=== PATIENT | female | born 1985 | race African-American/Black ===

== ENCOUNTER → 2019-10-18 | Emergency (ER) | payer MEDICAID ==
[~2019-10-18] VITALS: Ht 165.1 cm; Wt 63.5 kg
[~2019-10-18] MED LIST: AMOXICILLI250 MG/5 M ORAL; CHILDREN'S100 MG/58 PO; GUAIFENESI100 MG/5 M ORAL; LIDOCAINE VISC100 ML ORAL
--- NOTE | 2019-10-18 17:25 | NUR ---
ED Nurse Note: PT WALKED IN C/O FLU LIKE SYMPTOMS X 4DAYS, REPORTS SORE THROAT 10/10, COUGH, BILAT EARACHE. PT TEMP AT TRIAGE IS 100.2. VSS, NAD, ERPA AT BEDSIDE. WILL CONTINUE TO MONITOR PATIENT.
--- NOTE | 2019-10-18 17:50 | NUR ---
Note nelida in EDM - 10/18/19 at 1822 by [email or web address] ED Nurse Note: PT WALKED IN C/O FLU LIKE SYMPTOMS X4DAYS; PT REPORTS SORE THROATY Patient walked in c/o flu like symptoms x 4 days; pt reports a sore throat, cough, bilateral earache. Pt rates pain at 10/10. Temp 100.2 F in the ER.
--- NOTE | 2019-10-18 18:06 | Emergency Room Report ---
History of Present Illness General Chief Complaint: Flu Like Symptoms Source: Patient Present Illness HPI 33-year-old female with no significant past medical history here complaining of 4 days of a 10 out of 10 sore throat, fever and chills, and slight cough however denies congestion, abdominal pain, generalized body ache, nausea vomiting. Has been taking DayQuil and NyQuil with minimal relief. Denies any recent travel. Denies tobacco smoke, marijuana use, vaping. Denies at this time. Allergies: Coded Allergies: No Known Allergies (Unverified , 10/18/19) Patient History Past Medical History: see triage record Past Surgical History: unable to obtain Pertinent Family History: none Last Menstrual Period: 09/30/2019 Now: No : 2 Para: 2 Immunizations: UTD Reviewed Nursing Documentation: PMH: Agreed; PSxH: Agreed Nursing Documentation-PMH Past Medical History: No Stated History Review of Systems All Other Systems: negative except mentioned in HPI Physical Exam Vital Signs Date Time Temp Pulse Resp B/P (MAP) Pulse Ox O2 Delivery O2 Flow Rate FiO2 10/18/19 17:49 100.2 105 18 132/87 (102) 98 Room Air Sp02 EP Interpretation: reviewed, abnormal - Temperature 100 F General Appearance: no apparent distress, alert, GCS 15, non-toxic Head: normocephalic, atraumatic Eyes: bilateral eye normal inspection, bilateral eye PERRL ENT: EOM grossly intact, tonsillar swelling, pharyngeal erythema, tonsillar exudate Neck: supple, no meningismus, other - Anterior cervical lymphadenopathy Respiratory: chest non-tender, lungs clear, normal breath sounds, no wheezing, speaking full sentences Cardiovascular #1: regular rate, rhythm, no edema, no murmur Gastrointestinal: non tender, soft, no mass Rectal: deferred Genitourinary: no CVA tenderness Musculoskeletal: back normal Neurologic: alert, motor strength/tone normal, oriented x3, sensory intact, responsive, speech normal Psychiatric: judgement/insight normal, memory normal, mood/affect normal, no suicidal/homicidal ideation Skin: no rash Lymphatic: adenopathy - Anterior cervical lymphadenopathy Medical Decision Making PA Attestation All my diagnosis and treatment plans were reviewed ad discussed with my supervising physician Dr. Florence Diagnostic Impression: Primary Impression: Strep pharyngitis ER Course 33-year-old female with no significant past medical history here complaining of 4 days of a 10 out of 10 sore throat, fever and chills, and slight cough however denies congestion, abdominal pain, generalized body ache, nausea vomiting. Has been taking DayQuil and NyQuil with minimal relief. Denies any recent travel. Denies tobacco smoke, marijuana use, vaping. Denies at this time. Ddx considered but are not limited to: strep pharyngitis, URI, tonsillitis, peritonsillar abscess, influenza Vital signs: are WNL, pt. is febrile H&PE are most consistent with: Strep pharyngitis ORDERS: rapid strep test, rapid influenza test ED INTERVENTIONS: Amoxicillin, ibuprofen, lidocaine viscous, guaifenesin DISCHARGE: At this time pt. is stable for d/c to home. Will provide printed patient care instructions, and any necessary prescriptions. Care plan and follow up instructions have been discussed with the patient prior to discharge. Patient take medication as directed, follow with primary care provider, increase oral hydration, if worsening symptoms return to the emergency room Last Vital Signs Date Time Temp Pulse Resp B/P (MAP) Pulse Ox O2 Delivery O2 Flow Rate FiO2 10/18/19 17:49 100.2 105 18 132/87 (102) 98 Room Air Disposition: HOME, SELF-CARE Condition: Stable Scripts Guaifenesin* (GUAIFENESIN*) 100 Mg/5 Ml Liquid 5 ML ORAL Q8H, #120 ML 0 Refills Prov: Christopher Alarcon 10/18/19 Lidocaine HCl 2% Viscous (Lidocaine HCl 2% Viscous) 100 Ml Solution 15 ML ORAL QID, #120 ML Prov: Christopher Alarcon 10/18/19 Ibuprofen (Children's Advil) 100 Mg/5 Ml Oral.susp 10 ML PO QID, #200 ML Prov: Christopher Alarcon 10/18/19 Amoxicillin* (AMOXICILLIN*) 250 Mg/5 Ml Susp.recon 10 ML ORAL EVERY 8 HOURS for 10 Days, #300 ML Prov: Christopher Alarcon 10/18/19 Patient Instructions: Strep Throat, [id number] Additional Instructions: Take medication as directed, follow-up with your primary care provider, if worsening symptoms return to emergency room Christopher Alarcon Oct 18, 2019 18:06
[2019-10-18 18:12] VITALS: BP 132/87
--- NOTE | 2019-10-18 18:12 | NUR ---
ER DISCHARGE NOTE: Patient is cleared to be discharged per ERPA, pt is aox4, on room air, with stable vital signs. pt was given dc and prescription instructions, pt was able to verbalize understanding, pt id band removed without complications. pt is able to ambulate with steady gait. pt took all belongings.
== END | disposition home or self-care (01) ==
LOC: EMR 21:02
DX: J02.0 Streptococcal pharyngitis (principal)
CPT/HCPCS: 99282